=== PATIENT | female | born 1935 | race Caucasian/White ===

== ENCOUNTER 2020-07-30 10:31 | Day surgery (SDC) | payer MEDICARE, MEDICAID ==
[2006-02-26 19:23] VITALS: BP 137/76
[~2020-07-30] VITALS: Ht 149.9 cm; Wt 73.6 kg
[~2020-07-30 10:31] MED LIST: ASPIRIN E.C. 8181 MG PO; AVAPRO300 M1 PO; GLUCOPHAGE500 MG/TAB PO; LEVEMIR SQ; LEVEMIR100 U/ML SC; NORCO 325 MG-51 TAB PO; OMEPRAZOLE40 MG PO; ONE-A-DAY ESSE1 EACH PO; PRAVACHOL 40MG40 MG PO; PRILOSEC 20MG20 MG PO; VICODIN 5/5001 UDTAB PO
[2020-07-30 12:07] VITALS: BP 131/55; PULSE 80; TEMP 98.3
[2020-07-30] MEDS ORDERED: SYNTHROID0.1 MG/TAB PO (12:18)
--- NOTE | 2020-07-30 12:29 | NUR ---
Initial visit; Patient thanked Presser Hand for offering prayer prior to her 'Procedure.' Presser Hand offered God's blessings.
[2020-07-30 13:45] VITALS: BP 134/75; PULSE 68; TEMP 97.8
--- NOTE | 2020-07-30 13:45 | NUR ---
PT RECIEVED FROM PACU,VSS,AO, RESTING COMFORTABLY CALL LIGHT WITHIN REACH, BED LOW/LOCKED, WATER AND PUDDING AT BEDSIDE
[2020-07-30 14:00] VITALS: TEMP 97.8
[2020-07-30 14:05] VITALS: BP 133/63; PULSE 72
[2020-07-30 14:15] VITALS: BP 138/66; PULSE 69
--- NOTE | 2020-07-30 14:22 | NUR ---
PT ATE AND DRANK WITHOUT NAUSEA
[2020-07-30 15:00] VITALS: BP 132/67; PULSE 71
--- NOTE | 2020-07-30 15:36 | NUR ---
PT VOIDED PRIOR TO DC, URINE CLEAR YELLOW
== END 2020-07-30 15:05 | disposition home or self-care (01) ==
LOC: SDCO 10:31
DX: N39.41 Urge incontinence (principal); R35.0 Frequency of micturition; E78.5 Hyperlipidemia, unspecified; I10 Essential (primary) hypertension; E03.9 Hypothyroidism, unspecified; D50.9 Iron deficiency anemia, unspecified; E11.42 Type 2 diabetes mellitus with diabetic polyneuropathy; Z90.710 Acquired absence of both cervix and uterus; Z79.4 Long term (current) use of insulin; K21.9 Gastro-esophageal reflux disease without esophagitis; M19.90 Unspecified osteoarthritis, unspecified site
CPT/HCPCS: A4215; J0585; J0690; J2405; J2704; J3010; J7120

== ENCOUNTER 2021-07-23 19:26 | Emergency (ER) | payer MEDICARE, MEDICAID ==
[~2021-07-23] VITALS: Ht 147.3 cm; Wt 73.6 kg
[~2021-07-23 19:26] MED LIST changes: +SYNTHROID0.1 MG/TAB PO
[2021-07-23 19:28] VITALS: TEMP 97.9
[2021-07-23 20:07] LABS: BASO % 0.3 % (0.0-2.0); EOS # 0.1 K/mm3 (0.0-0.7); EOS % 0.5 % (0-4.0); GRAN # 9.9 K/mm3 (1.4-6.5); GRAN % 89.3 % (42.2-75.2); HEMATOCRIT 42.1 % (37.0-47.0); HEMOGLOBIN 14.2 g/dl (12.5-16.0); LYMPH # 0.5 K/mm3 (1.2-3.4); LYMPH % 4.3 % (20.0-51.0); MEAN CELL VOLUME 90 fl (80.0-100.0); MEAN CORPUSCULAR HEMOGLOBIN 30 pg (27.0-31.0); MEAN CORPUSCULAR HGB CONC 34 g/dl (33.0-37.0); MEAN PLATELET VOLUME 9.2 fl (7.4-10.4); MONO # 0.6 K/mm3 (0.1-0.6); MONO % 5.2 % (1.7-9.3); PLATELET COUNT 295 K/mm3 (130-400); REDCELL DISTRIBUTION WIDTH-CV 13.4 % (11.5-14.5)
[2021-07-23 20:23] LABS: ALBUMIN 3.4 gm/dL (3.4-4.8); BILIRUBIN,TOTAL 0.8 mg/dL (0.2-1.2); CREATININE, serum 0.7 mg/dL (0.57-1.11); POTASSIUM 4.2 mmol/L (3.5-4.5); TOTAL PROTEIN 7.7 gm/dL (6.2-8.1)
[2021-07-23 20:29] LABS: MUCOUS Present /lpf; PH 5 (5-8); SQUAMOUS EPITHELIAL 0-2 /hpf; URINE APPEARANCE Clear; URINE BACTERIA None Seen /hpf; URINE BILIRUBIN Negative (NEGATIVE); URINE BLOOD Negative (NEGATIVE); URINE COLOR Yellow; URINE GLUCOSE 1+ (NEGATIVE); URINE KETONE 1+ (NEGATIVE); URINE LEUKOCYTE ESTERASE Negative (NEGATIVE); URINE NITRATE Negative (NEGATIVE); URINE PROTEIN(semi-quant) Negative (NEGATIVE); URINE RBC 0-2 /hpf; URINE UROBILINOGEN Negative (NEGATIVE)
[2021-07-23 20:35] LABS: COLLECTION METHOD CLEAN CATCH
[2021-07-23] MEDS ORDERED: ZOFRAN ODT4 MG PO (21:22)
[2021-07-23 23:10] VITALS: BP 135/73; PULSE 76
== END 2021-07-23 23:10 | disposition home or self-care (01) ==
LOC: COL.ER 19:26
PROVIDERS: Family Medicine
DX: K52.9 Noninfective gastroenteritis and colitis, unspecified (principal); E86.0 Dehydration; I10 Essential (primary) hypertension; E78.5 Hyperlipidemia, unspecified; Z79.899 Other long term (current) drug therapy; Z20.822 Contact with and (suspected) exposure to COVID-19
CPT/HCPCS: J2405; J7120

== ENCOUNTER → 2021-08-18 | Outpatient (CLI) | payer MEDICARE, MEDICAID ==
[~2021-08-18] MED LIST changes: +ZOFRAN ODT4 MG PO
== END ==
LOC: DIA.ED 14:40
DX: E11.65 Type 2 diabetes mellitus with hyperglycemia (principal); Z79.4 Long term (current) use of insulin; E78.5 Hyperlipidemia, unspecified
CPT/HCPCS: G0108

== ENCOUNTER 2022-12-11 09:58 | Day surgery (SDC) | payer MEDICARE, MEDICAID ==
[2006-02-26 19:23] VITALS: BP 137/76
[~2022-12-11] VITALS: Ht 149.9 cm; Wt 72.9 kg
[2022-12-11 11:22] VITALS: BP 145/75; PULSE 93; TEMP 97.1
--- NOTE | 2022-12-11 11:33 | NUR ---
Assisted the patient to walk to the restroom with the use of her walker. She voids and returns to room.
[2022-12-11 13:50] VITALS: BP 120/64; PULSE 78; TEMP 97
[2022-12-11 14:05] VITALS: BP 159/92; PULSE 80; TEMP 97.2
[2022-12-11 14:20] VITALS: BP 153/74; PULSE 79
[2022-12-11 15:29] VITALS: BP 120/64; PULSE 78; TEMP 97
--- NOTE | 2022-12-11 19:24 | NUR ---
1351 - [id number] PT TO [facility] 8 FROM PACU S/P CYSTO WITH BOTOX PLACED ON MONITOR, VSS ON RA RECEIVED REPORT AND ASSUMED CARE OF PT FROM [facility] CG CALLED, WILL ARRIVE SHORTLY; [facility], H/O DEMENTIA, BUT GROSSLY A&O, KNOWS LIMITATIONS AND ABLE TO CLEARLY COMMUNICATE NEEDS PROVIDED FOOD AND FLUIDS - TOLERATED WELL CG BROUGHT TO BEDSIDE FROM PT HAS REMAINED A&O, NAD, VSS ON RA, TOLERATING PO, IS WITHOUT SIGNIFICANT COMPLAINT, THRU OUT [facility] STAY IV D/C'D. D/C INSTRUCTIONS, FOLLOW UP REVIEWED WITH PT/CG AND HANDED TO CG. ALL QUESTIONS AND CONCERNS ADDRESSED TO PT/CG SATISFACTION. TAKEN TO EXIT VIA W/C WITH ALL BELONGINGS AND PAPERWORK IN HAND, ASSISTED INTO PASSENGER SEAT OF POV. CG TO DRIVE HOME.
== END 2022-12-11 14:45 | disposition home or self-care (01) ==
LOC: SDCO 09:58
DX: N39.41 Urge incontinence (principal); N32.81 Overactive bladder; R35.0 Frequency of micturition; R35.1 Nocturia; E11.9 Type 2 diabetes mellitus without complications; Z79.899 Other long term (current) drug therapy; Z79.4 Long term (current) use of insulin; Z79.84 Long term (current) use of oral hypoglycemic drugs
CPT/HCPCS: A4215; J0585; J0690; J1100; J2405; J2704; J3010; J7030